=== PATIENT | male | born 2000 | race Caucasian/White ===

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

== ENCOUNTER 2020-06-18 18:01 | Emergency (ER) | payer OTHER ==
[~2020-06-18] VITALS: Ht 170.2 cm; Wt 117.0 kg
[2020-06-18 18:31] VITALS: Ht 170.2 cm; Wt 117.0 kg
[2020-06-18 20:19] VITALS: BP 123/61
== END 2020-06-18 20:11 | disposition home or self-care (01) ==
LOC: ED 18:01
DX: R21 Rash and other nonspecific skin eruption (principal)